=== PATIENT | male | born 1970 | race Caucasian/White ===

== ENCOUNTER 2017-02-20 11:38 | Emergency (ER) | payer OTHER ==
[2017-02-20 11:47] VITALS: TEMP 98.6
--- NOTE | 2017-02-20 12:04 | EDPHY ---
H & P Time Seen by Provider: 02/20/17 11:51 HPI/ROS: CHIEF COMPLAINT: Left thigh pain HISTORY OF PRESENT ILLNESS: Patient injured his hamstring and has been having a therapist work on his right leg. When he got up off the table on Thursday his left thigh started hurting. He describes pain from his proximal thigh down just above his knee. It is intermittent and is both front and back. Yesterday was worse with walking. Not associated with chest pain or shortness of breath. No weakness or numbness in the foot. No back pain or radiation to the calf. REVIEW OF SYSTEMS: No skin changes and no fever or chills. No recent direct blow or trauma. PAST MEDICAL HISTORY: Depression and acne. No statins. General Appearance: Alert and conversant, cooperative. Normal range torsion of hip knee and ankle on the left. Compartments are soft. Skin normal without redness or rash. Extending his left leg at the hip with straight leg raising type motion causes pain in his hamstring in the left thigh at 40 degrees. Normal motor sensory and dorsalis pedis pulse in the left foot. Patellar reflex 1+ and ankle reflexes 1+, no clonus, toes downgoing. Emergency Department course/MDM: Likely musculoskeletal or muscle spasm. Doubt arterial occlusion, compartment syndrome, sciatica, infection, rhabdomyolysis. Plan for ultrasound, evaluate for DVT. 1307: US shows low flow but no LLE DVT per Finer Smoking Status: Never smoked Constitutional: Initial Vital Signs Temperature (C) 37 C 02/20/17 11:43 Heart Rate 74 02/20/17 11:43 Respiratory Rate 18 02/20/17 11:43 Blood Pressure 118/84 H 02/20/17 11:43 O2 Sat (%) 100 02/20/17 11:43 O2 Delivery Mode Room Air,CPAP Allergies/Adverse Reactions: aripiprazole [From Abilify] Allergy (Verified 02/20/17 11:47) Hayfever Allergy (Uncoded 12/24/15 18:30) Home Medications: Medication Instructions Recorded Amoxicillin 250 mg PO DAILY 12/24/15 ERYTHROMYCIN 2% GEL 12/24/15 Flonase Nasal [place] 12/24/15 [place] Carbonate 900 mg PO DAILY 12/24/15 buPROPion 450 mg PO DAILY 12/24/15 traZODONE 100MG (*) 100 mg PO DAILY 12/24/15 Methylphenidate 02/20/17 MDM/Departure - Depart Disposition: Home, Routine, Self-Care Clinical Impression: left thigh muscle spasm Condition: Good Instructions: Muscle Spasm (ED) Additional Instructions: You have no evidence of blood clot but decreased blood flow in the veins of your left leg. Please return if you get chest pain shortness of breath or leg swelling in the left side. Referrals: Misha Navarro, [Primary Care Provider] - As per Instructions
[2017-02-20 13:16] VITALS: BP 127/93; PULSE 78; RESP 16; O2SAT 98
== END 2017-02-20 13:11 | disposition home or self-care (01) ==
LOC: CED 11:38
DX: M62.838 Other muscle spasm (principal)
CPT/HCPCS: 93971-PO